=== PATIENT | female | born 1970 | race Caucasian/White ===

== ENCOUNTER 2019-12-28 08:47 | Observation (INO) ==
[2019-12-28] MEDS ORDERED: Ondansetron 4 MG/2 ML VIAL IVP ONE ×2 (09:02→15:22)
[2019-12-28] MEDS ORDERED: 0.9 % Sodium Chloride 1,000 ML IVC ONE (09:02)
[2019-12-28] MEDS ORDERED: *HR* FentaNYL (PF) 100 MCG/2 ML VIAL IVP ONE ×2 (09:03→11:39)
[2019-12-28] MEDS ORDERED: Isovue-370 500 ML BOTTLE IVP ONE (09:11)
[2019-12-28 09:31] LABS: Basophils % 0.2 %; Eosinophils % 0.1 %; Hematocrit 44.4 % (35.3-44.9); Hemoglobin 14.7 g/dL (11.5-15.4); Immature Granulocytes % 0.3 % (0-4); Lymphocytes # 0.6 K/mcL (0.6-4.6); Lymphocytes % 4.5 %; Mean Corpuscular HGB Conc 33.1 g/dL (31.6-35.5); Mean Corpuscular Hemoglobin 28.4 pg (28.0-33.3); Mean Corpuscular Volume 85.7 fL (83.0-100.0); Mean Platelet Volume 11.9 fL (9.4-12.4); Monocytes # 0.5 K/mcL (0.0-1.3); Monocytes % 4.2 %; Neutrophils # 11.6 K/mcL (1.6-8.9); Platelet Count 244 K/mcL (140-400); Red Blood Count 5.18 M/mcL (3.82-4.97); Red Cell Distribution Width 13.1 % (11.5-14.5); Segmented Neutrophils % 90.7 %; White Blood Count 12.8 K/mcL (4.3-11.1)
[2019-12-28 09:34] LABS: Bilirubin,Urine Negative (Negative); Blood,Urine Negative (Negative); Clarity,Urine Clear (Clear); Color,Urine Yellow (Yellow); Glucose,Urine (UA) Normal (Normal); Ketones,Urine Negative (Negative); Leukocyte Esterase,Urine Negative (Negative); Nitrite,Urine Negative (Negative); PH,Urine 7.5 pH Units (5.0-8.0); Protein,Urine Negative (Neg-Trace); Specific Gravity,Urine 1.008 (1.010-1.025); Urobilinogen,Urine Normal (Normal)
[2019-12-28 09:35] LABS: INR 1.1; Prothrombin Time 12.3 Seconds (9.4-12.1)
[2019-12-28 09:38] LABS: Activated Partial Thrombo Time 30.6 Seconds (26.0-36.0)
[2019-12-28 09:53] LABS: Alanine Aminotransferase 16 Units/L (7-52); Albumin 4.5 g/dL (3.5-5.7); Albumin/Globulin Ratio 1.8 (1.1-2.2); Alkaline Phosphatase 68 Units/L (34-104); Aspartate Amino Transferase 18 Units/L (13-39); BUN/Creatinine Ratio 10 (6-26); Bilirubin,Direct 0.2 mg/dL (0.0-0.2); Bilirubin,Indirect 1.1 mg/dL (0.0-1.0); Bilirubin,Total 1.3 mg/dL (0.3-1.0); Blood Urea Nitrogen 7 mg/dL (6-20); Calcium 9.3 mg/dL (8.6-10.3); Carbon Dioxide 24 mEq/L (23-29); Chloride 104 mEq/L (98-107); Globulin 2.5 g/dL (2.4-3.5); Glucose 138 mg/dL (70-105); Lipase 7 Units/L (11-82); Osmolality,Calculated 282 (280-300); Potassium 3.9 mEq/L (3.5-5.1); Sodium 136 mEq/L (136-145); eGFR For African Americans > 60 (> 60); eGFR For Non-African Americans > 60 (> 60)
[2019-12-28 09:55] LABS: Troponin I < 0.03 ng/mL (< 0.04)
[2019-12-28] MEDS ORDERED: Piperacillin/Tazobactam 3.375 GM in 0.9 % Sodium Chloride Mini Bag 100 ML IVPB ONE (11:36)
[2019-12-28] MEDS ORDERED: *HR* HYDROmorphone (PF) 1 MG/ML SYRINGE IVP ONE ×2 (11:52→13:44)
[2019-12-28] MEDS ORDERED: *HR* Succinylcholine 200 MG/10 ML VIAL IVP ONE (14:37)
[2019-12-28] MEDS ORDERED: Dexamethasone 4 MG/ML VIAL ONE ×2 (14:37→15:14)
[2019-12-28] MEDS ORDERED: *HR* FentaNYL (PF) 100 MCG/2 ML VIAL ONE (14:37)
[2019-12-28] MEDS ORDERED: Ondansetron 4 MG/2 ML VIAL ONE ×2 (14:37→15:14)
[2019-12-28] MEDS ORDERED: Lidocaine -MPF 4% 5 ML AMPUL ONE ×2 (14:37→14:43)
[2019-12-28] MEDS ORDERED: *HR* Rocuronium Bromide 50 MG/5 ML VIAL ONE (14:37)
[2019-12-28] MEDS ORDERED: *HR* Propofol 200 MG/20 ML VIAL IVP ONE (14:38)
[2019-12-28] MEDS ORDERED: Lidocaine -MPF 2% 2 ML VIAL ONE (14:42)
[2019-12-28] MEDS ORDERED: CefOXitin 1,000 MG VIAL ONE (14:46)
[2019-12-28] MEDS ORDERED: Metoclopramide 10 MG/2 ML VIAL ONE (14:50)
[2019-12-28] MEDS ORDERED: Famotidine 20 MG/2 ML VIAL ONE (14:50)
[2019-12-28] MEDS ORDERED: *HR* PHENYLEPHRINE 1,000 MCG/10 ML SYRINGE IVP ONE (15:10)
[2019-12-28] MEDS ORDERED: EPHEDrine 50 MG/ML VIAL ONE (15:16)
[2019-12-28] MEDS ORDERED: *HR* Promethazine 25 MG/ML VIAL IVP PRN (15:22)
[2019-12-28] MEDS: *HR* HYDROmorphone PF 0.5 MG/0.5 ML SYRINGE IVP PRN ×2 (16:12→16:20)
[2019-12-28] MEDS ORDERED: EPINEPHrine 1 MG/ML VIAL ONE (16:23)
[2019-12-28] MEDS ORDERED: Ketorolac 30 MG/ML VIAL IVP ONE ×2 (16:36→17:00)
[2019-12-28] MEDS ORDERED: *HR* OxyCODONE/APAP 10/325 TABLET PO PRN (17:25)
[2019-12-28] MEDS ORDERED: Ondansetron 4 MG/2 ML VIAL IVP PRN (17:25)
[2019-12-28] MEDS: Piperacillin/Tazobactam 3.375 GM in 0.9 % Sodium Chloride Mini Bag 100 ML IVPB SCH (18:33)
[2019-12-28] MEDS: 0.9 % Sodium Chloride 1,000 ML IVC SCH (18:33)
[2019-12-28] MEDS ORDERED: Ibuprofen 800 MG TABLET PO PRN (19:47)
[2019-12-29] MEDS: Piperacillin/Tazobactam 3.375 GM in 0.9 % Sodium Chloride Mini Bag 100 ML IVPB SCH ×2 (00:01→08:01)
[2019-12-29 07:29] VITALS: BP 104/70
[2019-12-29] MEDS: 0.9 % Sodium Chloride 1,000 ML IVC SCH (08:02)
== END 2019-12-29 10:56 | disposition home or self-care (01) ==
LOC: EMEROOARM 08:47 → 3ANU 08:47
PROVIDERS: ADMIT Surgery; ATTEND Surgery

== ENCOUNTER 2021-06-06 20:46 | Observation (INO) ==
[2021-06-06 22:55] LABS: Basophils % 0.4 %; Eosinophils # 0.1 K/mcL (0.0-0.6); Eosinophils % 0.5 %; Hematocrit 45.2 % (35.3-44.9); Hemoglobin 15.2 g/dL (11.5-15.4); Immature Granulocytes % 0.3 % (0-4); Lymphocytes # 1.1 K/mcL (0.6-4.6); Lymphocytes % 11.3 %; Mean Corpuscular HGB Conc 33.6 g/dL (31.6-35.5); Mean Corpuscular Volume 89.2 fL (83.0-100.0); Mean Platelet Volume 11.1 fL (9.4-12.4); Monocytes # 0.4 K/mcL (0.0-1.3); Monocytes % 4.2 %; Neutrophils # 8.4 K/mcL (1.6-8.9); Platelet Count 260 K/mcL (140-400); Red Blood Count 5.07 M/mcL (3.82-4.97); Red Cell Distribution Width 11.8 % (11.5-14.5); Segmented Neutrophils % 83.3 %; White Blood Count 10.1 K/mcL (4.3-11.1)
[2021-06-06 23:05] LABS: BUN/Creatinine Ratio 14 (6-26); Blood Urea Nitrogen 12 mg/dL (6-20); Calcium 10.3 mg/dL (8.6-10.3); Carbon Dioxide 28 mEq/L (23-29); Chloride 101 mEq/L (98-107); Glucose 120 mg/dL (70-105); Osmolality,Calculated 287 (280-300); Potassium 4.6 mEq/L (3.5-5.1); Sodium 138 mEq/L (136-145); eGFR For African Americans > 60 (> 60); eGFR For Non-African Americans > 60 (> 60)
[2021-06-06 23:06] LABS: Troponin I < 0.03 ng/mL (< 0.04)
[2021-06-07] MEDS ORDERED: Isovue-370 500 ML BOTTLE IVP ONE (02:15)
[2021-06-07] MEDS ORDERED: GI Cocktail 40 ML EACH PO ONE (02:18)
[2021-06-07] MEDS ORDERED: Famotidine 20 MG TABLET PO ONE (02:18)
[2021-06-07] MEDS ORDERED: *HR* Heparin 5,000 UNIT/ML VIAL IVP PRN ×2 (02:42)
[2021-06-07] MEDS ORDERED: *HR* Heparin 5,000 UNIT/ML VIAL IVP ONE (02:42)
[2021-06-07] MEDS ORDERED: Heparin 25,000UNIT/250ML 1/2NS 25,000 UNIT/250 ML IV.SOLN IVC SCH (02:45)
[2021-06-07 03:53] LABS: Hematocrit 44.3 % (35.3-44.9); Hemoglobin 15.3 g/dL (11.5-15.4); Mean Corpuscular HGB Conc 34.5 g/dL (31.6-35.5); Mean Corpuscular Hemoglobin 30.7 pg (28.0-33.3); Mean Corpuscular Volume 88.8 fL (83.0-100.0); Mean Platelet Volume 11.4 fL (9.4-12.4); Platelet Count 266 K/mcL (140-400); Red Blood Count 4.99 M/mcL (3.82-4.97); Red Cell Distribution Width 11.6 % (11.5-14.5); White Blood Count 8.1 K/mcL (4.3-11.1)
[2021-06-07 03:57] LABS: Heparin anti-factor XA UFH < 0.04 IU/mL (0.30-0.70); INR 1.1; Prothrombin Time 12.5 Seconds (9.4-12.1)
[2021-06-07] MEDS ORDERED: Melatonin 3 MG TABLET PO PRN (05:22)
[2021-06-07] MEDS ORDERED: Acetaminophen 325 MG TABLET PO PRN (05:22)
[2021-06-07] MEDS ORDERED: Ondansetron ODT 4 MG TAB.RAPDIS SL PRN (05:22)
[2021-06-07] MEDS ORDERED: Naloxone 0.4 MG/ML INJ IVP PRN (05:22)
[2021-06-07] MEDS ORDERED: *HR* Rivaroxaban 15 MG TABLET PO SCH ×2 (11:00→12:00)
[2021-06-07 12:17] VITALS: BP 118/75; PULSE 70; TEMP 98; O2SAT 95
== END 2021-06-07 13:08 | disposition home or self-care (01) ==
LOC: CDU 20:46 → EMEROOARM 20:46 → SUATTDRO 06-07 03:28 → 3NENU 06-07 10:11
PROVIDERS: ADMIT Internal Medicine; ATTEND Internal Medicine